=== PATIENT | male | born 1970 | race Caucasian/White ===

== ENCOUNTER 2019-09-15 06:00 | Outpatient (RCR) | payer BC, SELFPAY | END 2019-10-15 00:01 | LOC: TR3 06:00 | PROVIDERS: Visit Provider Nurse Practitioner Acute Care | DX: Q28.2 Arteriovenous malformation of cerebral vessels (principal); R41.841 Cognitive communication deficit | CPT/HCPCS: 92507 ×7 ==

== ENCOUNTER 2019-10-16 06:00 | Outpatient (RCR) | payer BC, SELFPAY | END 2019-11-15 23:59 | disposition home or self-care (01) | LOC: TST 06:00 | DX: R41.841 Cognitive communication deficit (principal); Q28.2 Arteriovenous malformation of cerebral vessels | CPT/HCPCS: 92507 ==

== ENCOUNTER 2020-03-30 13:34 | Outpatient (RCR) | payer BC, SELFPAY | END 2020-04-14 23:59 | disposition home or self-care (01) | LOC: SPT 13:34 | PROVIDERS: PCP Family Medicine; Visit Provider Family Medicine | DX: Q27.9 Congenital malformation of peripheral vascular system, unspecified (principal); F32.9 Major depressive disorder, single episode, unspecified | CPT/HCPCS: 97140; 97161 ==

== ENCOUNTER 2020-04-15 06:00 | Outpatient (RCR) | payer BC, SELFPAY | END 2020-05-14 14:43 | disposition home or self-care (01) | LOC: SPT 06:00 | PROVIDERS: PCP Family Medicine; Visit Provider Family Medicine | DX: Q27.9 Congenital malformation of peripheral vascular system, unspecified (principal); F32.9 Major depressive disorder, single episode, unspecified | CPT/HCPCS: 97140 ==

== ENCOUNTER 2021-03-12 17:58 | Emergency (ER) | payer BC, SELFPAY ==
[2021-03-12 18:37] VITALS: BP 154/95; PULSE 75; RESP 18; TEMP 36.6; O2SAT 97; BMI 41.1
--- NOTE | 2021-03-12 19:07 | W.ED.WOUNDLC ---
HPI - Wound/Laceration General: Chief Complaint: Wound/Laceration Stated Complaint: VEIN POPPED OPEN AND BLEEDING PT ON BLOOD THINNERS Time Seen by Provider: 03/12/21 18:15 Source: patient Mode of arrival: ambulatory Limitations: no limitations History of Present Illness: HPI narrative: 50-year-old male states that he has history of varicose veins and states he was in the shower for 2 hours ago when started bleeding on his right lower leg. Patient had a pressure bandage. He states it was bleeding quite a bit at home. I remove the bandage she has no bleeding at this time. 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 He denies any worsening improving factors. Associated symptoms: Denies chills, fever(s), nausea or vomiting Review of Systems Const: Denies: fever(s), chills, body aches or change in appetite Eyes: Denies: blurry vision or eye discomfort ENMT: Denies: throat pain or dental pain Card: Denies: chest pain Resp: Denies: dyspnea GI: Denies: abdominal pain, nausea, vomiting or diarrhea : Denies: dysuria Musc: Denies: neck pain or back pain Skin/Breast: Denies: rash Neuro: Denies: headache(s) Psych: Denies: depression Justin/Lymph: Denies: easy bruising All/Imm: Denies: urticaria Physical Exam Const: COMMON NORMALS: no acute distress, patient oriented x3 and healthy appearing HENMT: COMMON NORMALS: normocephalic and atraumatic HEAD & SCALP: normocephalic and atraumatic Eye: COMMON NORMALS: Equal, round and reactive pupils present and EOMs intact bilaterally PUPIL: Yes Equal, round and reactive pupils present Neck/C-Spine: COMMON NORMALS: full ROM and supple Chest: COMMONS NORMALS: normal inspection of the chest and normal palpation of entire chest wall Resp: COMMON NORMALS: normal respiratory effort, No retractions, No use of accessory muscles and clear to auscultation bilaterally AUSCULTATION: clear to auscultation bilaterally Cardio: COMMON NORMALS: regular rate, regular rhythm and No murmurs present (Cardio) RATE: regular rate RHYTHM: regular rhythm GI: COMMON NORMALS: Normal to inspection, nondistended, normoactive bowel sounds present, Soft to palpation, non-tender and no masses PALPATION: Yes Soft to palpation Extremity: COMMON NORMALS: normal to inspection and full ROM NARRATIVE EXTREMITY EXAM: Slight swelling to bilateral legs does have varicose veins. No bleeding at this time. Neuro: COMMON NORMALS: patient oriented x3, moves all extremities and no focal motor deficits Psych: COMMON NORMALS: mental status grossly normal, Normal thought process present and cooperative THOUGHT PROCESS: Normal thought process present Skin: COMMON NORMALS: no rashes or lesions noted and no wounds GENERAL SKIN EXAM: no rashes or lesions noted Course Vital Signs: Vital signs: Vital Signs Temperature 97.8 F 03/12/21 18:37 Pulse Rate 77 03/12/21 20:06 Respiratory Rate 16 03/12/21 20:06 Blood Pressure 147/97 03/12/21 20:06 Pulse Oximetry 97 03/12/21 20:06 MDM - Wound/Laceration MDM Narrative: Medical decision making narrative: Patient presents here with bleeding from a varicose vein that is since resolved with pressure. Observed him and has had no other bleeding. His hemoglobin and INR are normal. He is stable for discharge and is to follow-up with PCP and return if worsening. He understands agrees to plan. Lab Data: Labs: Lab Results 03/12/21 03/12/21 Range/Units 19:22 19:22 WBC 8.9 (4.0-10.0) 10^3/ uL RBC 5.68 H (4.1-5.3) 10^6/u L Hgb 11.4 L (11.7-16.6) g/dL Hct 37.6 L (42.0-52.0) % MCV 66.2 L (80-94) fL MCH 20.1 L (28.0-34.0) pg MCHC 30.3 (30.0-36.0) g/dL RDW 17.1 H (12.1-15.1) % Plt Count 171 (130-400) 10^3/c mm MPV 8.0 (7.4-10.4) fL Neut % (Auto) 65.0 % Lymph % (Auto) 26.3 % [place] % (Auto) 6.6 % Eos % (Auto) 1.2 % Baso % (Auto) 0.6 % Neut # (Auto) 5.79 (1.8-7.7) 10^3/u L Lymph # (Auto) 2.3 (0.8-4.8) 10^3/u L [place] # (Auto) 0.6 (0.2-0.9) 10^3/u L Eos # (Auto) 0.1 (0.0-0.8) 10^3/u L Baso # (Auto) 0.1 (0.0-0.1) 10^3/u L Nucleated RBC % (a uto) 0.2 % Nucleated RBCs # 0.0 /100WBC PT 14.10 (12.1-14.9) SECO NDS INR 1.06 (0.8-1.2) Discharge Plan Discharge Patient Disposition: Home Clinical Impression: Bleeding from varicose vein Condition: Stable Prescriptions: No Action Zyrtec 10 mg Tablet 10 mg PO DAILY PRN (Reason: Allergy Symptoms) RF: 0 sertraline 25 mg tablet 25 mg PO DAILY@0700 RF: 0 lisinopril 5 mg tablet 5 mg PO DAILY@0700 RF: 0 metoprolol succinate 25 mg tablet extended release 24 hr 12.5 mg PO DAILY@0700 RF: 0 cholecalciferol (vitamin D3) [Vitamin D3] 25 mcg (1,000 unit) Tablet 75 mcg PO DAILY@2100 RF: 0 Eliquis 5 mg tablet 5 mg PO BID@0700,2100 RF: 0 multivitamin 1 tab PO DAILY@0700 RF: 0 Discharge Orders: Discharge ED (Routine); Ordered 03/12/21 Ordered By: Rabia Nath Referrals: Chava Washburn MD [Primary Care Provider] - 1-3 days Discharge Diet: Advance as tolerated Discharge Activity: Resume usual activity Patient Instructions: Varicose Veins (ED) Coding Level of Care Code ED Adolescent Coordinator for Chg Fwd Exam Comprehensive
[2021-03-12 19:11] VITALS: BP 130/87; PULSE 76; RESP 16; O2SAT 95
[2021-03-12 19:26] LABS: Basophils # 0.1 10^3/uL (0.0-0.1); Basophils % 0.6 %; Eosinophils # 0.1 10^3/uL (0.0-0.8); Eosinophils % 1.2 %; Hematocrit 37.6 % (42.0-52.0); Hemoglobin 11.4 g/dL (11.7-16.6); Lymphocytes # 2.3 10^3/uL (0.8-4.8); Lymphocytes % 26.3 %; Mean Corpuscular HGB Conc 30.3 g/dL (30.0-36.0); Mean Corpuscular Hemoglobin 20.1 pg (28.0-34.0); Mean Corpuscular Volume 66.2 fL (80-94); Monocytes # 0.6 10^3/uL (0.2-0.9); Monocytes % 6.6 %; Neutrophils # 5.79 10^3/uL (1.8-7.7); Nucleated Red Blood Cells % 0.2 %; Platelet Count 171 10^3/cmm (130-400); Red Blood Count 5.68 10^6/uL (4.1-5.3); Red Cell Distribution Width 17.1 % (12.1-15.1); White Blood Count 8.9 10^3/uL (4.0-10.0)
[2021-03-12 19:35] LABS: INR 1.06 (0.8-1.2)
[2021-03-12 19:44] LABS: Slide Review Slide Review Perform
[2021-03-12 20:06] VITALS: BP 147/97; PULSE 77; RESP 16; O2SAT 97
== END 2021-03-12 20:07 | disposition home or self-care (01) ==
PROVIDERS: Emergency Provider Emergency Medicine; PCP Family Medicine
DX: I83.891 Varicose veins of right lower extremity with other complications (principal)
CPT/HCPCS: 85025; 85610; 99282

== ENCOUNTER 2022-02-12 12:12 | Emergency (ER) | payer MEDICARE, SELFPAY ==
[2022-02-12 12:16] VITALS: BP 127/73; PULSE 93; RESP 14; TEMP 36.5; O2SAT 97; BMI 43.2
--- NOTE | 2022-02-12 12:21 | CTR_ITS ---
PROCEDURE INFORMATION: Exam: CTA Angiogram of the Abdominal Aorta and Bilateral Lower Extremities (Run-off) With IV Contrast Exam date and time: 02/12/2022 12:51 PM Age: 51 years old Clinical indication: Other: Lle swelling; Additional info: L leg significant swelling TECHNIQUE: Imaging protocol: CT angiogram of the abdominal aorta, pelvis and bilateral lower extremities with IV iodinated contrast. 3D rendering (Not supervised by radiologist): MIP and/or 3D reconstructed images were created by the technologist. Radiation optimization: All CT scans at this facility use at least one of these dose optimization techniques: automated exposure control; mA and/or kV adjustment per patient size (includes targeted exams where dose is matched to clinical indication); or iterative reconstruction. Contrast material: OMNI 350; Contrast volume: 95 ml; Contrast route: INTRAVENOUS (IV); COMPARISON: No relevant prior studies available. RADIATION DOSE METRICS: Total DLP (mGy-cm): 2389.92 FINDINGS: Aorta: No aortic aneurysm. No aortic dissection. Celiac trunk and mesenteric arteries: No occlusion or significant stenosis. Renal arteries: No occlusion or significant stenosis. Right iliac arteries: There is a small focal dissection seen involving the right external iliac artery image 3/145 without evidence of narrowing. Right femoral/popliteal arteries: No occlusion or significant stenosis. Right infrapopliteal arteries: No occlusion or significant stenosis. Left iliac arteries: No occlusion or significant stenosis. Left femoral/popliteal arteries: There is compression of the left proximal superficial femoral artery by the large upper thigh hematoma to almost a slit like structure. It measures 2 mm at its thinnest while in the lower thigh it measures 6 mm so this is a 50-70% external compression causing narrowing. Left infrapopliteal arteries: No occlusion or significant stenosis. Veins: Two adjacent inferior vena cava stents extending through the common iliac veins into the external iliac veins bilaterally. There may be clot noted within the left side but this is an arterial and not a venous study. Liver: Fatty liver. Mild hepatomegaly. Gallbladder and bile ducts: There may be a small amount of haziness surrounding the gallbladder which could be mild pericholecystic edema and fluid. Pancreas: Unremarkable. No mass. No ductal dilation. Spleen: Normal. No splenomegaly. Adrenals: Normal. No mass. Kidneys and ureters: Normal. No mass. Stomach and bowel: Unremarkable. No obstruction. No mucosal thickening. Appendix: No evidence of appendicitis. Urinary bladder: Unremarkable. No mass. Reproductive: Unremarkable as visualized. Intraperitoneal space: Unremarkable. No free air. No significant fluid collection. Retroperitoneal space: Retroperitoneal inflammatory changes. I do not know if these are acute or chronic and could represent retroperitoneal fibrosis. Lymph nodes: No lymphadenopathy. Bones/joints: No acute fracture. No dislocation. Soft tissues: Unremarkable. Other findings: There is a large hematoma involving the left medial upper thigh spanning 178 by 94 by 194 mm. There is an area of acute extravasation noted on image 3/200. Diffuse varicosities are seen in the anterior abdominal/pelvis wall small nodules possibly injection granulomata is measuring up to [address]/CT angio abd aorta runof 12780 IMPRESSION: 1. There is a large left medial upper thigh hematoma. This may be involving the adjacent pectineus and rectus femoris muscles with acute extravasation into the hematoma. The hematoma is compressing the superficial femoral artery at least 65% possibly more. There is however, no clot within the arterial system. 2. There is a small focal dissection involving the right external iliac artery. 3. Two stents are noted within the inferior vena cava extending into the external iliac veins. There may be thrombosis within the left side of the stent throughout most of its course but this is not a venous study. 4. Inflammatory changes in the retroperitoneum. This could be sequela of the hematoma in the thigh versus retroperitoneal fibrosis. Clinical history as to why stents were placed in the venous system these to be performed. 5. Varicosities. 6. Questionable subtle haziness surround the gallbladder. 7. THIS REPORT CONTAINS FINDINGS THAT MAY BE CRITICAL TO PATIENT CARE. The findings were verbally communicated by me to JULIA MCFARLANE at 2:37 PM ANNUAL CAMPAIGN MANAGER on 02/12/2022. The findings were acknowledged and understood.
--- NOTE | 2022-02-12 12:24 | W.ED.GENADLT ---
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 Patient tells me that that his IVC was completely clogged and that there were significant stenosis blockage of his veins bilaterally. Most recently 3 days ago, he wonder when bilateral stent placement in his veins with interventional radiology. Since then, patient was discharged home with close follow-up. Earlier today, patient noticed a pop sensation in his left leg and then noted significant swelling and pain in the last 2 hrs. Patient denies any active bleeding, nausea/vomiting, fever/chills, diarrhea melena/hematochezia. Patient reports that he has been constipated but has been taking hydrocodone. Patient tells me he currently takes Lovenox twice a day per request of her interventional radiologist. Patient denies any trauma or any injuries. No complaints of chest pain, shortness breath, palpitation, lightheadedness, or other neurological complaints. No urinary complaints at this time. Onset:earlier today (2 hrs ago) Duration:ongoing Location:home Severity:moderate Associated symptoms: Deny chest pain, dyspnea, nausea, rash, palpitations or vomiting Review of Systems Const: Denies: fever(s) or chills Eyes: Denies: change in vision ENMT: Denies: mouth pain Card: Denies: chest pain or palpitations Resp: Denies: dyspnea or non-productive cough GI: Denies: abdominal pain, nausea, vomiting or diarrhea : Denies: dysuria Musc: Reports: extremity pain and extremity swelling Skin/Breast: Denies: rash or new lesions Neuro: Denies: weakness in extremities Psych: Reports: other (Normal mood) Justin/Lymph: Denies: easy bruising [facility] PFSH: Medical History (Updated 02/12/22 @ 13:33 by Quyen Carrillo MD) DVT (deep venous thrombosis) HTN (hypertension) with goal to be determined Hyperlipemia Social History (Updated 02/12/22 @ 12:27 by Quyen Carrillo MD) Smoking and tobacco status: never smoked Alcohol intake: never Substance/Drug Use: never Physical Exam Const: COMMON NORMALS: alert HENMT: COMMON NORMALS: atraumatic HEAD & SCALP: atraumatic MOUTH: moist mucous membranes not abnormal Eye: COMMON NORMALS: EOMs intact bilaterally and conjunctivae normal CONJUNCTIVA: Yes conjunctivae normal Neck/C-Spine: COMMON NORMALS: full ROM and supple Resp: COMMON NORMALS: normal respiratory effort and clear to auscultation bilaterally AUSCULTATION: clear to auscultation bilaterally Cardio: COMMON NORMALS: regular rate RATE: regular rate GI: COMMON NORMALS: Soft to palpation and non-tender PALPATION: Yes Soft to palpation Extremity: COMMON NORMALS: full ROM NARRATIVE EXTREMITY EXAM: + Left thigh swelling, compartments soft, cap refill of 3-4 seconds in the left lower extremity, neurovascular exam intact in the left lower extremity Neuro: SENSORIUM/ORIENTATION: Yes alert MOTOR EXAM: No Abnormal motor strength present and Other motor observations present (no focal motor deficits) Psych: COMMON NORMALS: speech normal SPEECH: Yes normal speech MOOD & AFFECT: Yes euthymic mood Course Vital Signs: Vital signs: Vital Signs Temperature 97.7 F 02/12/22 12:16 Pulse Rate 84 02/12/22 13:11 Respiratory Rate 18 02/12/22 15:00 Blood Pressure 124/73 02/12/22 13:11 Pulse Oximetry 94 02/12/22 15:00 MDM - General Adult Medical Decision Making 51M w/ hx of DVTs, recent iliocaval reconstitution and stenting for chronic iliac clots at [facility] presenting to the emergency room with significant left thigh swelling and pain for the last 2 hours. Patient's compartment peers to be soft. No active signs of bleeding. Patient is neurovascular intact. Cap refills 3 to 4 seconds on the affected extremity. Hemoglobin of 8.2 down from baseline of 11. CTA lower legs showed acute ARTERIAL extravasation to the thigh (per radiology). Patient continues to have soft compartments however is getting more tight. Patient had a tourniquet that was placed in the L thigh. Lovenox was reversed with protamine sulfate. Patient received 2u of blood. S/p TXA and aminocaproic acid. Case was discussed with Dr. Martinez who agreed with the transfer to [facility] acute hematoma/arterial extravasation into the thigh compartment Disposition: Transfer to outside hospital Lab Data : 02/12/22 14:46 02/12/22 13:02 Radiology Impressions Aorta w/Runoff CTA 02/12/22 12:21 IMPRESSION: 1. There is a large left medial upper thigh hematoma. This may be involving the adjacent pectineus and rectus femoris muscles with acute extravasation into the hematoma. The hematoma is compressing the superficial femoral artery at least 65% possibly more. There is however, no clot within the arterial system. 2. There is a small focal dissection involving the right external iliac artery. 3. Two stents are noted within the inferior vena cava extending into the external iliac veins. There may be thrombosis within the left side of the stent throughout most of its course but this is not a venous study. 4. Inflammatory changes in the retroperitoneum. This could be sequela of the hematoma in the thigh versus retroperitoneal fibrosis. Clinical history as to why stents were placed in the venous system these to be performed. 5. Varicosities. 6. Questionable subtle haziness surround the gallbladder. 7. THIS REPORT CONTAINS FINDINGS THAT MAY BE CRITICAL TO PATIENT CARE. The findings were verbally communicated by me to QUYEN CARRILLO at 2:37 PM GREEN CHAIN OFF BEARER on 02/12/2022. The findings were acknowledged and understood. Laboratory Results WBC 9.2 10^3/uL (4.0-10.0) 02/12/22 13:02 Corrected WBC Cancelled 02/12/22 12:25 RBC 4.07 10^6/uL (4.1-5.3) L 02/12/22 13:02 Hgb 8.4 g/dL (11.7-16.6) L 02/12/22 14:46 Hct 27.3 % (42.0-52.0) L 02/12/22 13:02 MCV 67.1 fl (80-94) L 02/12/22 13:02 MCH 20.1 pg (28.0-34.0) L 02/12/22 13:02 MCHC 30.0 g/dL (30.0-36.0) 02/12/22 13:02 RDW 16.9 % (12.1-15.1) H 02/12/22 13:02 Plt Count 149 10^3/cmm (130-400) 02/12/22 13:02 MPV 12.4 fL (7.4-10.4) H 02/12/22 13:02 Gran % Cancelled 02/12/22 12:25 Neut % (Auto) 80.5 % 02/12/22 13:02 Lymph % (Auto) 9.9 % 02/12/22 13:02 [place] % (Auto) 8.2 % 02/12/22 13:02 Eos % (Auto) 0.7 % 02/12/22 13:02 Baso % (Auto) 0.2 % 02/12/22 13:02 Neut # (Auto) 7.41 10^3/uL (1.8-7.7) 02/12/22 13:02 Lymph # (Auto) 0.9 10^3/uL (0.8-4.8) 02/12/22 13:02 [place] # (Auto) 0.8 10^3/uL (0.2-0.9) 02/12/22 13:02 Eos # (Auto) 0.1 10^3/uL (0.0-0.8) 02/12/22 13:02 Baso # (Auto) 0.0 10^3/uL (0.0-0.1) 02/12/22 13:02 Absolute Gran (auto) Cancelled 02/12/22 12:25 Nucleated RBC % (auto) 0.5 % 02/12/22 13:02 Nucleated RBCs # 0.1 /100WBC 02/12/22 13:02 PT 15.80 SECONDS (12.1-14.9) H 02/12/22 13:02 INR 1.22 (0.8-1.2) H 02/12/22 13:02 APTT 37.8 SECONDS (23.9-36.7) H 02/12/22 13:02 Sodium 134 mmol/L (136-145) L 02/12/22 13:02 Potassium 4.0 mmol/L (3.5-5.1) 02/12/22 13:02 Chloride 101 mmol/L (98-107) 02/12/22 13:02 Carbon Dioxide 26 mmol/L (22-29) 02/12/22 13:02 Anion Gap 11.0 (5-19) 02/12/22 13:02 BUN 9 mg/dL (6-20) 02/12/22 13:02 Creatinine 0.6 mg/dL (0.7-1.2) L 02/12/22 13:02 GFR Calculation 142.6 mL/min (90-130) H 02/12/22 13:02 Glucose 221 mg/dL (65-115) H 02/12/22 13:02 Calculated Osmolality 283 mOsm/kg (285-295) L 02/12/22 13:02 Calcium 7.2 mg/dL (8.5-10.5) L 02/12/22 13:02 Imaging Data Other Imaging: Radiologist's impression: [facility] [address] [place] [address] CT Scan Report Signed Patient: Derrick Moran Unit #: [id number] : 1970 Age/Sex: 51 / M ADM Date: 02/12/22 Loc: ER Room/Bed: Attending Dr: Ordering Provider/Ordering MD: Quyen Carrillo MD Date of Service: 02/12/22 Procedure(s): CT angio abd aorta runof 52084 Accession Number(s): [id number] Report Number: [id number] PROCEDURE INFORMATION: Exam: CTA Angiogram of the Abdominal Aorta and Bilateral Lower Extremities (Run-off) With IV Contrast Exam date and time: 02/12/2022 12:51 PM Age: 51 years old Clinical indication: Other: Lle swelling; Additional info: L leg significant swelling TECHNIQUE: Imaging protocol: CT angiogram of the abdominal aorta, pelvis and bilateral lower extremities with IV iodinated contrast. 3D rendering (Not supervised by radiologist): MIP and/or 3D reconstructed images were created by the technologist. Radiation optimization: All CT scans at this facility use at least one of these dose optimization techniques: automated exposure control; mA and/or kV adjustment per patient size (includes targeted exams where dose is matched to clinical indication); or iterative reconstruction. Contrast material: OMNI 350; Contrast volume: 95 ml; Contrast route: INTRAVENOUS (IV);? COMPARISON: No relevant prior studies available. RADIATION DOSE METRICS: Total DLP (mGy-cm): 2389.92 FINDINGS: Aorta: No aortic aneurysm. No aortic dissection.? Celiac trunk and mesenteric arteries: No occlusion or significant stenosis.? Renal arteries: No occlusion or significant stenosis.? Right iliac arteries: There is a small focal dissection seen involving the right external iliac artery image 3/145 without evidence of narrowing. Right femoral/popliteal arteries: No occlusion or significant stenosis.? Right infrapopliteal arteries: No occlusion or significant stenosis.? Left iliac arteries: No occlusion or significant stenosis.? Left femoral/popliteal arteries: There is compression of the left proximal superficial femoral artery by the large upper thigh hematoma to almost a slit like structure. It measures 2 mm at its thinnest while in the lower thigh it measures 6 mm so this is a 50-70% external compression causing narrowing. Left infrapopliteal arteries: No occlusion or significant stenosis.? Veins: Two adjacent inferior vena cava stents extending through the common iliac veins into the external iliac veins bilaterally. There may be clot noted within the left side but this is an arterial and not a venous study. Liver: Fatty liver. Mild hepatomegaly. Gallbladder and bile ducts: There may be a small amount of haziness surrounding the gallbladder which could be mild pericholecystic edema and fluid. Pancreas: Unremarkable. No mass. No ductal dilation.? Spleen: Normal. No splenomegaly.? Adrenals: Normal. No mass.? Kidneys and ureters: Normal. No mass.? Stomach and bowel: Unremarkable. No obstruction. No mucosal thickening.? Appendix: No evidence of appendicitis.? Urinary bladder: Unremarkable. No mass.? Reproductive: Unremarkable as visualized.? Intraperitoneal space: Unremarkable. No free air. No significant fluid collection.? Retroperitoneal space: Retroperitoneal inflammatory changes. I do not know if these are acute or chronic and could represent retroperitoneal fibrosis. Lymph nodes: No lymphadenopathy. Bones/joints: No acute fracture. No dislocation.? Soft tissues: Unremarkable.? Other findings: There is a large hematoma involving the left medial upper thigh spanning 178 by 94 by 194 mm. There is an area of acute extravasation noted on image 3/200. Diffuse varicosities are seen in the anterior abdominal/pelvis wall small nodules possibly injection granulomata is measuring up to [address]/CT angio abd aorta runof 60227 IMPRESSION: 1. There is a large left medial upper thigh hematoma. This may be involving the adjacent pectineus and rectus femoris muscles with acute extravasation into the hematoma. The hematoma is compressing the superficial femoral artery at least 65% possibly more. There is however, no clot within the arterial system. 2. There is a small focal dissection involving the right external iliac artery. 3. Two stents are noted within the inferior vena cava extending into the external iliac veins. There may be thrombosis within the left side of the stent throughout most of its course but this is not a venous study. 4. Inflammatory changes in the retroperitoneum. This could be sequela of the hematoma in the thigh versus retroperitoneal fibrosis. Clinical history as to why stents were placed in the venous system these to be performed. 5. Varicosities. 6. Questionable subtle haziness surround the gallbladder. 7. THIS REPORT CONTAINS FINDINGS THAT MAY BE CRITICAL TO PATIENT CARE. The findings were verbally communicated by me to QUYEN CARRILLO at 2:37 PM GREEN CHAIN OFF BEARER on 02/12/2022. The findings were acknowledged and understood. ? Dictated By: Constantin Nash MD Signed By: Constantin Nash MD Signed Date/Time: 02/12/22 1441 DD/ 1251 Critical Care Time Critical Care Time: Critical Care Time: Yes Total Critical Care Time: 35 Attestation: The high probability of a clinically significant, sudden or life threatening deterioration of the patient's hematological system(s) required my full and direct attention, intervention and personal management. The critical care time is as shown. This time is in addition to time spent performing any reported procedures but includes the following: [x] Data and vital sign review and interpretation [x] Patient assessment, examination and intervention [x] Documentation [x] Medication orders and management Discharge Plan Discharge Patient Disposition: Transfer to ED Clinical Impression: Swelling of thigh, Acute thigh pain, Thigh hematoma Prescriptions: No Action cetirizine [Zyrtec] 10 mg Tablet 10 mg PO DAILY PRN (Reason: Allergy Symptoms) 0RF lisinopril 5 mg tablet 5 mg PO DAILY@0700 0RF metoprolol succinate 25 mg tablet extended release 24 hr 12.5 mg PO DAILY@0700 0RF cholecalciferol (vitamin D3) [Vitamin D3] 25 mcg (1,000 unit) Tablet 75 mcg PO DAILY@2100 0RF multivitamin 1 tab PO DAILY@0700 0RF alprazolam 0.25 mg tablet 0.25 mg PO DAILY PRN (Reason: Anxiety) 0RF enoxaparin 150 mg/mL syringe 140 mg SUBCUT Q12H 0RF oxycodone 5 mg tablet 5 mg PO Q6H PRN (Reason: Pain) 0RF Referrals: Chava Washburn MD [Primary Care Provider] - Coding Level of Care Code ED Table Games Floor Supervisor for Chg Fwd Exam Comprehensive
[2022-02-12 12:36] VITALS: RESP 18; O2SAT 96
[2022-02-12] MEDS: morphine 4 mg/mL SDV 1 mL IVP (12:36)
[2022-02-12] MEDS: iohexol 350 mg/mL 100 mL Btl IV (12:54)
[2022-02-12 13:11] VITALS: BP 124/73; PULSE 84; RESP 16; O2SAT 94
[2022-02-12 13:11] LABS: Basophils % 0.2 %; Eosinophils # 0.1 10^3/uL (0.0-0.8); Eosinophils % 0.7 %; Hematocrit 27.3 % (42.0-52.0); Hemoglobin 8.2 g/dL (11.7-16.6); Lymphocytes # 0.9 10^3/uL (0.8-4.8); Lymphocytes % 9.9 %; Mean Corpuscular Hemoglobin 20.1 pg (28.0-34.0); Mean Corpuscular Volume 67.1 fl (80-94); Mean Platelet Volume 12.4 fL (7.4-10.4); Monocytes # 0.8 10^3/uL (0.2-0.9); Monocytes % 8.2 %; Neutrophils # 7.41 10^3/uL (1.8-7.7); Neutrophils % 80.5 %; Nucleated Red Blood Cells # 0.1 /100WBC; Nucleated Red Blood Cells % 0.5 %; Platelet Count 149 10^3/cmm (130-400); Red Blood Count 4.07 10^6/uL (4.1-5.3); Red Cell Distribution Width 16.9 % (12.1-15.1); White Blood Count 9.2 10^3/uL (4.0-10.0)
[2022-02-12 13:26] LABS: Blood Urea Nitrogen 9 mg/dL (6-20); Calcium 7.2 mg/dL (8.5-10.5); Carbon Dioxide 26 mmol/L (22-29); Chloride 101 mmol/L (98-107); Glomerular Filtration Rate 142.6 mL/min (90-130); Glucose 221 mg/dL (65-115); INR 1.22 (0.8-1.2); Osmolality Calculated 283 mOsm/kg (285-295); Partial Thromboplastin Time 37.8 SECONDS (23.9-36.7); Sodium 134 mmol/L (136-145)
[2022-02-12 14:56] LABS: Hemoglobin 8.4 g/dL (11.7-16.6)
[2022-02-12 15:00] VITALS: RESP 18; O2SAT 94
[2022-02-12] MEDS: HYDROmorphone 1 mg/mL INJ 1 mL 0.5 MG IVP (15:00)
--- NOTE | 2022-02-12 15:13 | PC.NURSE ---
unit [id number] o positive uncrossed matched blood exp march 02, 2022 started at 1514 temp 97.6, pulse 102, 93% RA, 115/77, pain 4:10 blood open to gravity in left AC 18 ga left thigh rapped with sheet tourniquet and kristina bandage, abd sheet also in place, pulse in left foot weak 1520 vitals pulse, 102, 97% RA, 121/75, temp 97.8
--- NOTE | 2022-02-12 15:36 | PC.NURSE ---
report given to Domi Graff RN at [facility]
[2022-02-12] MEDS: sodium chloride 0.9% 100 mL Bag 50 ML IV (15:38)
--- NOTE | 2022-02-12 15:45 | PC.NURSE ---
Patient came to the ER after having vascular surgery yesterday at [facility], discharge home and felt a pop today in his left groin area. The patient left upper leg area was very swollen and very painful, patient had a faint pedal pulse with foot being cool to the touch. Foot was still pink in color. It was noted by CTA scan the patient had a Arterial bleed. A tourniquet made with sheets because of size of patients leg was applied the upper leg area of patient per Dr Carrillo's orders. Two units of emergency blood was ordered and one unit was pressured in with the second unit was started and sent with patient. Orders for Protamine, Amicar and TXA was entered, the Protamine and Amicar was sent with the flight nurse. Fight nurse stated that they had TXA onboard for the patient and would be given en-route.
== END 2022-02-12 15:45 ==
PROVIDERS: Emergency Provider Emergency Medicine; PCP Family Medicine
DX: S70.12XA Contusion of left thigh, initial encounter (principal); X58.XXXA Exposure to other specified factors, initial encounter; Z86.718 Personal history of other venous thrombosis and embolism; Z95.828 Presence of other vascular implants and grafts; I77.1 Stricture of artery; Z79.891 Long term (current) use of opiate analgesic
CPT/HCPCS: 75635; 80048; 85018; 85025; 85610; 85730; 86920; 96361; 96374; 96375; 99285; J1170; J2270; P9016; Q9967

== ENCOUNTER 2024-04-30 16:19 | Outpatient (RCR) | payer MEDICARE, SELFPAY | END 2024-05-15 23:59 | disposition home or self-care (01) | LOC: CR 16:19 | PROVIDERS: PCP Family Medicine; Referring Provider Internal Medicine Cardiovascular Disease; Visit Provider Internal Medicine Cardiovascular Disease | DX: I50.9 Heart failure, unspecified (principal) | CPT/HCPCS: 93798 ==

== ENCOUNTER 2024-05-16 09:36 | Outpatient (RCR) | payer MEDICARE, SELFPAY | END 2024-06-15 18:00 | disposition home or self-care (01) | LOC: CR 09:36 | PROVIDERS: PCP Family Medicine; Referring Provider Internal Medicine Cardiovascular Disease; Visit Provider Internal Medicine Cardiovascular Disease | DX: I50.9 Heart failure, unspecified (principal) | CPT/HCPCS: 93798 ==

== ENCOUNTER 2024-06-16 07:55 | Outpatient (RCR) | payer MEDICARE, SELFPAY | END 2024-07-15 23:59 | disposition home or self-care (01) | LOC: CR 07:55 | PROVIDERS: PCP Family Medicine; Referring Provider Internal Medicine Cardiovascular Disease; Visit Provider Internal Medicine Cardiovascular Disease | DX: I50.9 Heart failure, unspecified (principal) | CPT/HCPCS: 93798 ==

== ENCOUNTER 2024-07-16 08:25 | Outpatient (RCR) | payer MEDICARE, SELFPAY | END 2024-08-15 23:59 | disposition home or self-care (01) | LOC: CR 08:25 | PROVIDERS: PCP Family Medicine; Referring Provider Internal Medicine Cardiovascular Disease; Visit Provider Internal Medicine Cardiovascular Disease | DX: I50.9 Heart failure, unspecified (principal) | CPT/HCPCS: 93798 ==

== ENCOUNTER 2024-08-16 10:35 | Outpatient (RCR) | payer MEDICARE, SELFPAY | END 2024-09-14 23:59 | disposition home or self-care (01) | LOC: CR 10:35 | PROVIDERS: PCP Family Medicine; Referring Provider Internal Medicine Cardiovascular Disease; Visit Provider Internal Medicine Cardiovascular Disease | DX: I50.9 Heart failure, unspecified (principal) | CPT/HCPCS: 93798 ==

== ENCOUNTER 2024-09-16 09:01 | Outpatient (RCR) | payer MEDICARE, SELFPAY | END 2024-10-15 23:59 | disposition home or self-care (01) | LOC: CR 09:01 | PROVIDERS: PCP Family Medicine; Referring Provider Internal Medicine Cardiovascular Disease; Visit Provider Internal Medicine Cardiovascular Disease | DX: I50.9 Heart failure, unspecified (principal) | CPT/HCPCS: 93798 ==